=== PATIENT | female | born 1945 | race Caucasian/White ===

== ENCOUNTER 2022-06-06 13:29 | Emergency (ER) | payer MEDICARE, SELFPAY ==
[2022-06-06 14:14] VITALS: BP 152/69; PULSE 70; RESP 16; TEMP 36.5; O2SAT 98
[2022-06-06 14:16] VITALS: BP 152/69; PULSE 70; RESP 16; TEMP 36.5; O2SAT 98
--- NOTE | 2022-06-06 15:33 | ED.URI ---
HPI - URI/Sore Throat General Chief Complaint: Upper Respiratory Infection Stated Complaint: coughing Headache sore throat Time Seen by Provider: 06/06/22 14:40 Source: patient, RN notes reviewed and old records reviewed Mode of arrival: ambulatory Limitations: no limitations History of Present Illness HPI Narrative: 77-YEAR-OLD FEMALE WHO PRESENTS TO [facility] WITH COMPLAINTS ONE WEEK DURATION OF COUGH, Congestion, sore throat, bad headache. Patient has been taking multi symptom Mucinex and Tylenol. Patient reports that cough is hacking and is keeping her up at night.Patient reports that she has had COVID vaccinations and flu shot. MD elicited complaint: cough, sore throat, nasal congestion and other (headache) Onset (ago): day(s) (1) Pain scale (0-10): 7 Treatments prior to arrival: acetaminophen and other (multi symptom Mucinex) Related Data Home Medications Medication Instructions Recorded Confirmed celecoxib 200 mg capsule 200 mg PO DAILY 06/06/22 06/06/22 ezetimibe 10 mg tablet 10 mg PO DAILY 06/06/22 06/06/22 fluoxetine 40 mg capsule 40 mg PO DAILY 06/06/22 06/06/22 lisinopril 20 20 tablet PO DAILY 06/06/22 06/06/22 mg-hydrochlorothiazide 12.5 mg tablet omeprazole 20 mg capsule,delayed 20 mg PO DAILY 06/06/22 06/06/22 release trazodone 150 mg tablet 150 mg PO HS 06/06/22 06/06/22 Allergies Allergy/AdvReac Type Severity Reaction Status Date / Time acetaminophen Allergy Intermediate itching Verified 06/06/22 14:00 hydrocodone Allergy Intermediate itching Verified 06/06/22 14:00 Sulfa (Sulfonamide Allergy Intermediate vomiting Verified 06/06/22 14:00 Antibiotics) Review of Systems Review of Systems: CONSTITUTIONAL: Denies malaise, chills, sweats, or fever. EYES: Denies visual changes, redness, or discharge. ENT: Reports rhinorrhea, congestion, sinus pain,no otalgia,positive for sore throat. CARDIOVASCULAR: Denies chest pain, palpitations, or edema. RESPIRATORY: Reports cough.? Denies dyspnea. GASTROINTESTINAL: Denies abdominal pain, nausea, vomiting, diarrhea SKIN: Denies rash or itching. MUSCULOSKELETAL: Denies myalgia. NEUROLOGIC:Reports headache. All systems reviewed & are unremarkable except as noted in HPI and below PMFSH Past Medical History Medical History (Updated 06/13/22 @ 15:29 by Yumiko Ward NP) Elevated cholesterol GERD (gastroesophageal reflux disease) Hypertension Surgical History Surgical History (Updated 06/13/22 @ 15:32 by Yumiko Ward NP) H/O left knee surgery History of right knee surgery Hx of cholecystectomy Social History Social History (Updated 06/13/22 @ 15:33 by Yumiko Ward NP) Smoking status: Never smoker Alcohol intake: unknown Substance use: never Gender identity (if verbalized by the patient): Female Comments At time of signature, agree with nursing past medical, surgical, social and family history. There is no relevant family history pertinent to the presenting complaint Exam Narrative: GENERAL: Well-appearing, well-nourished, and in no acute distress. HEAD: Normocephalic EYES: PERRLA, conjunctivae clear ENT: Nares clear, turbinates edematous and erythematous, clear discharge. Mucous membranes moist. TM pearly james with dull light reflex bilaterally; no tragal tenderness. Oropharynx erythematous without lesions. Tonsils not enlarged and without exudate, no drooling, no hoarseness, no trismus, uvula midline.post nasal drainage noted NECK: Supple. No lymphadenopathy CHEST: Clear to auscultation, breath sounds equal. No wheezing, rhonchi, rales, or stridor. No respiratory distress, speaks in full sentences.harsh cough [id number]% on room air HEART: Regular rate and rhythm. No murmur heard. SKIN: Warm, dry, no rash. NEURO: Alert and oriented x3. PSYCH: Normal mood and affect Course Course Emergency Course: Patient is aware of diagnosis, understands and agrees to treatment plan.? Anticipato
== END 2022-06-06 15:48 | disposition home or self-care (01) ==
PROVIDERS: Emergency Provider Registered Nurse; PCP Internal Medicine
DX: J06.9 Acute upper respiratory infection, unspecified (principal); Z20.822 Contact with and (suspected) exposure to COVID-19
CPT/HCPCS: 87081; 87426; 87804; 87880; 99203; C9803; G0463

== ENCOUNTER 2023-07-14 15:48 | Emergency (ER) | payer MEDICARE, SELFPAY ==
[2023-07-14 15:54] VITALS: BP 168/72; PULSE 81; RESP 16; TEMP 37.2; O2SAT 96
--- NOTE | 2023-07-14 17:09 | ED.URI ---
HPI - URI/Sore Throat General Chief Complaint: Upper Respiratory Infection Stated Complaint: Cough/Ear Problem/Congestion Time Seen by Provider: 07/14/23 17:09 Source: patient, RN notes reviewed and old records reviewed Mode of arrival: ambulatory Limitations: no limitations History of Present Illness HPI Narrative: 78-year-old female presents to [facility] care with complaints of having cough, sore throat, loss of voice, sinus congestion and drainage since last Monday. Patient reports that she has pressure to her face under both of her eyes.Patient states since yesterday she has had increase in cough and also some ear pain. She denies any body aches, reports intermittent low grade fever, denies any shortness of breath, She states that she has been taking OTC Mucinex DM and using honey for her cough. MD elicited complaint: cough, sore throat, rhinorrhea, nasal congestion, sinus pain and other (ear pain) Onset (ago): day(s) (10) Consistency: progressively worsening Severity: moderate Able to tolerate fluids by mouth: Yes Treatments prior to arrival: other (Mucinex DM and honey for cough) Related Data Home Medications Medication Instructions Recorded Confirmed ezetimibe 10 mg tablet 10 mg PO DAILY 06/06/22 07/14/23 lisinopril 20 20 tablet PO DAILY 06/06/22 07/14/23 mg-hydrochlorothiazide 12.5 mg tablet Allergies Allergy/AdvReac Type Severity Reaction Status Date / Time acetaminophen Allergy Intermediate itching Verified 07/14/23 16:05 hydrocodone Allergy Intermediate itching Verified 07/14/23 16:05 Sulfa (Sulfonamide Allergy Intermediate vomiting Verified 07/14/23 16:05 Antibiotics) Review of Systems Review of Systems: CONSTITUTIONAL:Reports malaise,no chills, sweats, low grade fever. EYES: Denies visual changes, redness, or discharge. ENT: Reports rhinorrhea, congestion, sinus pain, otalgia and sore throat. CARDIOVASCULAR: Denies chest pain, palpitations, or edema. RESPIRATORY: Reports cough.? Denies dyspnea. GASTROINTESTINAL: Denies abdominal pain, nausea, vomiting, diarrhea SKIN: Denies rash or itching. MUSCULOSKELETAL: Denies myalgia. NEUROLOGIC: Denies headache. All systems reviewed & are unremarkable except as noted in HPI and below PMFSH Past Medical History Medical History Elevated cholesterol GERD (gastroesophageal reflux disease) Hypertension Surgical History Surgical History H/O left knee surgery History of right knee surgery Hx of cholecystectomy Social History Social History Smoking status: Never smoker Alcohol intake: unknown Substance use: never Gender identity (if verbalized by the patient): Female Comments At time of signature, agree with nursing past medical, surgical, social and family history. There is no relevant family history pertinent to the presenting complaint Exam Narrative: GENERAL: Well-appearing, well-nourished, and in no acute distress. HEAD: Normocephalic EYES: PERRLA, conjunctivae clear ENT: Nares clear, turbinates edematous and erythematous, clear discharge. Mucous membranes moist. TM pearly james with dull light reflex bilaterally; no tragal tenderness. Oropharynx erythematous without lesions. Tonsils not enlarged and without exudate, no drooling, no hoarseness, no trismus, uvula midline.post nasal drainage NECK: Supple. No lymphadenopathy CHEST: Clear to auscultation, breath sounds equal. No wheezing, rhonchi, rales, or stridor. No respiratory distress, speaks in full sentences.cough,SAO2 96% on room air HEART: Regular rate and rhythm. No murmur heard. SKIN: Warm, dry, no rash. NEURO: Alert and oriented x3. PSYCH: Normal mood and affect Course Course Emergency Course: Patient is aware of diagnosis, understands and agrees to treatment plan.? Rohini
== END 2023-07-14 17:30 | disposition home or self-care (01) ==
PROVIDERS: Emergency Provider Registered Nurse; PCP Internal Medicine
DX: J06.9 Acute upper respiratory infection, unspecified (principal); R05.1 Acute cough; I10 Essential (primary) hypertension; Z79.899 Other long term (current) drug therapy
CPT/HCPCS: 99213; G0463

== ENCOUNTER 2025-02-03 10:06 | Emergency (ER) | payer MEDICARE, SELFPAY ==
[2025-02-03 10:14] VITALS: BP 136/62; PULSE 85; RESP 20; TEMP 36.6; O2SAT 98
--- NOTE | 2025-02-03 10:47 | ED_ITS ---
HPI - URI/Sore Throat General Chief Complaint: Upper Respiratory Infection Stated Complaint: Ear Problem/Sinus Problem Time Seen by Provider: 02/03/25 10:51 Source: patient and RN notes reviewed Mode of arrival: ambulatory Limitations: no limitations History of Present Illness HPI Narrative: 79-year-old female presents with concern for one-week history of ear pain, ear pressure, pressure to her forehead and cheeks, sinus drainage. Reports taking [id number] cold medicine without relief. She reports symptoms started after she went on vacation. MD elicited complaint: nasal congestion Related Data Home Medications ?Medication ?Instructions ?Recorded ?Confirmed ?Last Taken ?Type ezetimibe 10 mg tablet 10 mg PO DAILY 06/06/22 08/27/23 Unknown History lisinopril 20 20 tablet PO DAILY 06/06/22 08/27/23 Unknown History mg-hydrochlorothiazide 12.5 mg tablet celecoxib 200 mg capsule 200 mg PO DAILY 08/25/23 08/27/23 Unknown History fluoxetine 40 mg capsule 40 mg PO DAILY 08/25/23 08/27/23 Unknown History omeprazole 20 mg capsule,delayed 20 mg PO DAILY 08/25/23 08/27/23 Unknown History release trazodone 150 mg tablet 150 mg PO QHS PRN 08/25/23 08/27/23 Unknown History Allergies Allergy/AdvReac Type Severity Reaction Status Date / Time acetaminophen Allergy Intermediate itching Verified 08/25/23 09:39 hydrocodone Allergy Intermediate itching Verified 08/25/23 09:39 Sulfa (Sulfonamide Allergy Intermediate vomiting Verified 08/25/23 09:39 Antibiotics) Review of Systems Review of Systems: CONSTITUTIONAL: Denies malaise, chills, sweats, or fever. EYES: Denies visual changes, redness, or discharge. ENT: Reports rhinorrhea, congestion, sinus pain, otalgia CARDIOVASCULAR: Denies chest pain, palpitations, or edema. RESPIRATORY: Denies cough. Denies dyspnea. GASTROINTESTINAL: Denies abdominal pain, nausea, vomiting, diarrhea SKIN: Denies rash or itching. MUSCULOSKELETAL: Denies myalgia. NEUROLOGIC: Denies headache. All systems reviewed & are unremarkable except as noted in HPI and below PMFSH Past Medical History Medical History Elevated cholesterol GERD (gastroesophageal reflux disease) Hypertension Surgical History Surgical History H/O left knee surgery History of right knee surgery Hx of cholecystectomy Family History Family History Mother Hypertension Depression Heart disease Cerebrovascular accident Sibling Hypertension Social History Social History Smoking status: Never smoker Alcohol intake: never Substance use: never Substance use type: does not use Do You Feel Safe in your Home?: Yes Lack of Transportation: No Lack of Food: Never True Current Housing: I Have Housing Concerned About Future Housing: No Difficulty Paying Gas/Electric Bills: No Difficulty Paying for Meds: No Currently Unemployed: No Education: High School Diploma/GED Difficulty w/ Childcare or Family Care: No Gender identity (if verbalized by the patient): Female Comments At time of signature, agree with nursing past medical, surgical, social and family history. There is no relevant family history pertinent to the presenting complaint Exam Narrative: GENERAL: Well-appearing, well-nourished, and in no acute distress. HEAD: Normocephalic EYES: PERRLA, conjunctivae clear ENT: Nares clear, turbinates edematous and erythematous. Mucous membranes moist. TM pearly james with dull light reflex bilaterally; no tragal tenderness. Oropharynx not erythematous without lesions. Tonsils not enlarged and without exudate, no drooling, no hoarseness, no trismus, uvula midline. NECK: Supple. No lymphadenopathy CHEST: Clear to auscultation, breath sounds equal. No wheezing, rhonchi, rales, or stridor. No respiratory distress, speaks in full sentences. HEART: Regular rate and rhythm. No murmur heard. SKIN: Warm, dry, no rash. NEURO: Alert and oriented x3. PSYCH: Normal mood and affect Course Course Emergency Course: Patient is aware of diagnosis, understands and agrees to treatment plan. Anticipatory guidance given. Patient agrees to follow-up as directed and is aware of reasons to seek care at the emergency department. Portions of this record may have been created with voice recognition software Level of Care: Express Care Visit Vital Signs Vital signs: Vital Signs Temperature 97.8 F 02/03/25 10:14 Pulse Rate 85 02/03/25 10:14 Respiratory Rate 20 02/03/25 10:14 Blood Pressure 136/62 02/03/25 10:14 Pulse Oximetry 98 02/03/25 10:14 Oxygen Delivery Room Air 02/03/25 10:14 Temperature 97.8 F 02/03/25 10:14 Pulse Rate 85 02/03/25 10:14 Respiratory Rate 20 02/03/25 10:14 Blood Pressure 136/62 02/03/25 10:14 Pulse Oximetry 98 02/03/25 10:14 Oxygen Delivery Room Air 02/03/25 10:14 Reviewed. MDM - URI/Sore Throat MDM Narrative Medical decision making narrative: Differential diagnosis considered: Perdomo virus, strep pharyngitis, allergic rhinitis, upper respiratory tract infection, sinusitis, rhinosinusitis, nasopharyngitis. viral pharyngitis, otitis media, otitis externa, pneumonia, bronchitis, viral cough syndrome, viral syndrome, and influenza. Exam findings show no acute concerns or changes; patient is non-toxic appearing and is in no distress. Patient is appropriate for outpatient treatment and follow-up. Lab Data Attestation: I reviewed the patient's lab results. Critical Care Time Critical Care Time Critical Care Time: No Discharge Plan Discharge Clinical Impression: Sinusitis Patient Disposition: Home Condition: Stable Instructions: Antibiotic Form, Sinusitis (ED) Additional Instructions: Take medications as prescribed Nonprescription pain medications, such as acetaminophen (eg, Tylenol) or ibuprofen (eg, Motrin, Advil), are recommended for pain. Flushing the nose and sinuses with a saline solution several times per day has been proven to decrease pain associated with congestion and shorten the duration of symptoms. Nasal steroids (such as Flonase, 2 sprays in each nostril daily) can help to reduce swelling inside the nose, usually within two to three days. These drugs have few side effects and relieve symptoms in most people. Nasal decongestant sprays, including oxymetazoline (Afrin) and phenylephrine ( Timothy-Synephrine), can be used to temporarily treat congestion. However, these sprays should not be used for more than two to three days due to the risk of rebound congestion (when the nose becomes congested constantly unless the medication is used repeatedly), possible addiction, and long-term consequences of frequent use, including persistent nasal dryness and crusting, which is very difficult to treat once it has developed. Medications to thin secretions (such as guaifenesin) may help to clear mucus. Please follow-up with your primary care doctor in the next 1-2 days. If you cannot follow-up with your primary care doctor please go to the ED for any urgent issues. If you have any worsening of symptoms or any other concerns please go to the ED immediately. Patient Language: Greenlandic Prescriptions: New methylprednisolone [Medrol (Elias)] 4 mg tablets,dose pack See Rx Instructions .ROUTE .COMPLEX Qty: 21 0RF Rx Instructions: orally per package directions amoxicillin-pot clavulanate 875-125 mg tablet 1 tablet PO Q12H 10 Days Qty: 20 0RF No Action lisinopril-hydrochlorothiazide 20-12.5 mg tablet 20 tablet PO DAILY ezetimibe 10 mg tablet 10 mg PO DAILY celecoxib 200 mg capsule 200 mg PO DAILY omeprazole 20 mg capsule,delayed release(DR/EC) 20 mg PO DAILY fluoxetine 40 mg capsule 40 mg PO DAILY trazodone 150 mg tablet 150 mg PO QHS PRN methocarbamol 500 mg tablet 500 mg PO TID PRN (Reason: muscle spasm) Qty: 60 1RF Follow-up/Referrals: Yusef,Hal Farrar MD [Primary Care Provider] - Time of Disposition: 10:58
== END 2025-02-03 11:05 | disposition home or self-care (01) ==
PROVIDERS: Emergency Provider Nurse Practitioner; PCP Internal Medicine
DX: J32.9 Chronic sinusitis, unspecified (principal); I10 Essential (primary) hypertension
CPT/HCPCS: 99213; G0463

== ENCOUNTER 2025-04-08 16:07 | Emergency (ER) | payer MEDICARE, SELFPAY ==
--- OUTSIDE RECORDS SUMMARY | 2024-05-22 04:30 | XMS_ITS | Continuity of Care Document ---
Author Organization [facility] Address [address] [place] [address] Phone Care Team Providers Care Handbag Operator Name Role Phone Rafaela KATHRYN, Denice Unavailable Unavailable Allergies, Adverse Reactions, Alerts Substance Reaction Status Criticality HYDROCODONE BITARTRATE Active No In formation acetaminophen Active No Information Sulfa (Sulfonamide Antibiotics) Active No Information Medications Medication Instructions Dosage Effective Dates (start - stop) Status Comments celecoxib 200 mg capsule take 1 capsule by oral route 2 times every day as needed 200 MG - Active lisinopril 20 mg-hydrochlorothiaz viv 12.5 mg tablet take 1 tablet by oral route every day 1.00 tablet - Active ezetimibe 10 mg tablet take 1 tablet by oral route every day 10 MG - Active fluoxetine 40 mg capsule take 1 capsule by oral route every day in the morning 40 MG - Active omeprazole 20 mg delayed release,disintegrat ing tablet take 1 tablet once daily - Active trazodone 150 mg tablet take 1 tablet by oral route 3 times every day 150 MG - Active Procedures Procedure Date Fundus Photography W/ Report Eye Exam, New Patient No Charge Refraction Post-op Follow-up Visit Post-op Follow-up Visit Post-op Follow-up Visit Complex Extracapsular Cat Rem 0 IOLMaster-Professional IOLMaster-Technical No Charge Optomap Fundus Photos 020 No Charge Orbscan No Charge Refraction No Charge GDX Retina Eye Exam, New Patient Advance Directives Directive Yes / No Effective Date File Name No Information Encounters Encounter Description Practice Location Reason(s) For Visit Diagnoses Date Provider Providers Copied on Encounter [facility], [address] [place] [address] [address], [place], [place], [id number], tel:[phone] SEC Jarod LIZ Professional Complete Exam (chief complaint) Other secondary cataract, bilateralPre sence of intraocular lensVitreous degeneration , left eyePseudoexf oliation (PXF) of lens capsuleDry eye syndrome of bilateral lacrimal glands 4 Rafaela OD Denice. [address] [place] [address] [facility], [address], [place], [place], [id number], [place]. tel:[phone] Referring Provider: Pedrito Gomez, [address] [place] [address], [address]. tel:[phone] [facility], [facility] [address], [place], [place], [id number], tel:[phone] SEC Jarod LIZ Professional 1 month s/p COMPLEX PCIOL (chief complaint) Post op visit 0 No Information Referring Provider: Pedrito Gomez, [address] [place] [address], [place], [address]. tel:[phone] [facility], [facility] [address], [place], [place], [id number], tel:[phone] SEC Jarod LIZ Professional 1-2 wk po PCIOL OD (06/10/20) (chief complaint) Post op visit 0 No Information Referring Provider: Pedrito Gomez, [address] [place] [address], [address]. tel:[phone] [facility], [address] [place], [place] [address], [place], [place], [id number], tel:[phone] SEC Jarod LIZ Professional Post-Op (chief complaint) Post op visit 0 5- 0 No Information Referring Provider: Pedrito Gomez, [address] [place] [address], [address]. tel:[phone] [facility], [address] [place] [address] [address], [place], [place], [id number], [place] tel:1 [facility] No Information Nov-0 0 José Miguel Justice. [address] [facility] [place] [facility], [facility] [address], [place], [place], [id number], [place]. tel:[phone] Referring Provider: Pedrito Gomez, [address] [place] [address], [address]. tel:[phone] [facility], [address] [place] [address] [address], [place], [place], [id number], [place] tel:[phone] SEC [place] Professional No Information Nov-0 0 José Miguel Justice. [address] [place] [facility], [facility] [place], [address], [place]. tel:[phone] Referring Provider: Pedrito Gomez, [address] [place] [address], [address]. tel:[phone] [facility], [address] [place] [address] [address], [place], [place], [id number], [place] tel:[phone] SEC Jarod LIZ Professional Complete Exam (chief complaint) Punctate keratitis, bilateralPse udophakia of left eyeOther secondary cataract, left eyePseudoexf oliation (PXF) of lens capsuleAge-r elated nuclear cataract, right eye Sep-2 0 José Miguel Trujillo [address] [facility], [facility] [place], [place], [id number], [place]. tel:[phone] Referring Provider: Pedrito Gomez, [address] [place] [address], [address]. tel:[phone] [facility], [address] [place] [address] [address], [place], [place], [id number], [place] tel:[phone] SEC Joshua Chong No Information 0 José Miguel Justice. [address] [facility], [address], [place], [place], [address], [place]. tel:[phone] Family History Family Member Type Diagnosis Age At Onset Mother Problem degenerative disorder of [place] Payers Payer name Insurance type Covered libertarian ID Jose carvalho(s) [employer] Medicare CI [id number] Social History Type Description Quantity Date Captured Comments Alcohol Use Details No Caffeine Use Details 5 cups per day Tobacco Use Status Current non-smoker Smoking Status Never smoker Non-Smoking Tobacco Use Details : No Details Available : No Details Available Sex Female Chief Complaint And Reason For Visit From encounter dated '05/22/2024 09:30'. Complete Exam (chief complaint). Description: The 79 year old patient presents for evaluation of Complete Exam in the right eye and left eye. Pt states she feels like vision is good OU but states shehas a floater OS x6+ months. Pt states sometimes she is having allergy symptoms with her eyes OU. Reason For Referral Reason For Referral No Information Plan Of Treatment Date Type Action Status Patient Education Learning About YAG Lase r Capsulotomy completed Patient Education Cataract Surgery: What to Expect at H~ completed History Of Present Illness Encounter Date Complaint History Of Prese nt Illness Complete Exam The 79 year old patient presents for evaluation of Complete Exam in the right eye and left eye. Pt states she feels like vision is good OU but states she has a floater OS x6+ months. Pt states sometimes she is having allergy symptoms with her eyes OU. 1 month s/p COMPLEX PCIOL The 75 year old female presents for evaluation of 1 month s/p COMPLEX PCIOL in the right eye (06/10/20). Patient states VA is good with the right eye. 1-2 wk po PCIOL OD (06/10/20) The 75 year old female presents for evaluation of 1-2 wk po PCIOL OD (06/10/20) in the right eye. Pt reports good comfort and vision OD. Pt reports taking Pred, Ket, and Vig QID OD. Post-Op The 75 year old female presents for a 1 day post op CE OD. Patient is using Pred, Vigamox and Ketorolac qid OD. Patient denies any pain or discomfort. Complete Exam The 75 year old female presents for evaluation of Complete Exam in the right eye and left eye. Hx of PCIOL OS and Cataract OD. Patient states over the last year her right her has decreased. Patient states she avoids driving at night due to glare more with the right eye than left. Patient has difficulty seeing roads signs at a distance with the right eye x 6 months. Patient has trouble reading labels at the grocery store with the right eye x year. 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
--- NOTE | ~2025-04-08 | XR_ITS ---
EXAMINATION: XR chest 2V 04/08/2025 16:53 INDICATION: Cough and shortness of breath PROCEDURE: 2 view chest COMPARISON: No prior studies for comparison. FINDINGS: The lungs are clear. The cardiomediastinal silhouette is within normal limits. There are no pleural effusions. There is no pneumothorax suspected. IMPRESSION: 1: NO ACUTE CARDIOPULMONARY DISEASE. Reviewed, dictated and finalized at location O.
--- OUTSIDE RECORDS SUMMARY | 2025-04-08 16:11 | XMS_ITS | Clinical Summary ---
Author Organization [email or web address] Address [address] Lord: Epic Prelude ADT SUZANNE GRANADOQUYNH [address] Care Team Providers Care Bingo Caller Name Role Phone Unavailable Primary Care Provider Unavailabl e Social History Tobacco Use Types Packs/Day Years Used Date Smoking Tobacco: Never Assessed Comments Unknown Sex and Gender Information Value Date Recorded Sex Assigned at Not on file Legal Sex Female 4:58 AM MATCH UP PERSON Gender Identity Not on file Sexual Orientation Not on file Plan of Treatment Health Maintenance Due Date Last Done Comments DTAP/TDAP/TD VACCINES (1 - Tdap) 1964 PNEUMOCOCCAL VACCINE 50+ YEARS (1 of 1 - PCV) 03/22/19 94 ZOSTER VACCINE (1 of 2) 1994 OSTEOPOROSIS SCREENING 2009 RSV VACCINE (60+ or ) (1 - 1-dose 75+ series) 2019 INFLUENZA VACCINE (#1) 2025
--- OUTSIDE RECORDS SUMMARY | 2025-04-08 16:11 | XMS_ITS | Encounter Summary ---
Author Organization [facility] Address [address] 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
--- OUTSIDE RECORDS SUMMARY | 2025-04-08 16:11 | XMS_ITS | Clinical Summary ---
Author Organization [facility] Address [address] [place] [address] Care Team Providers Care Nondestructive Tester Name Role Phone Unavailable Primary Care Provider Unavailabl e Source Comments [facility],non-owned Affiliates and Associated Physician Practices is amultiple site organization consisting of ambulatory clinics and hospital sitesin [place], [place], [place] and [place]. This disclosure is being madepursuant to the Care Everywhere program and may not contain all information available regarding this patient. Last updated 18.[facility] Immunizations Immunization Administration Dates Next Due INFLUENZA VACCINE, HIGH-DOSE , QUADR. (FLUZONE HIGH-DOSE QUADRIVALENT; 65Y+), 0.7 ML ([id number]) 05/22/2019 Social History Tobacco Use Types Packs/Day Years Used Date Smoking Tobacco: Never Assessed Comments Unknown Sex and Gender Information Value Date Recorded Sex Assigned at Not on file Legal Sex Female 4:31 PM CDT Gender Identity Not on file Sexual Orientation Not on file Plan of Treatment Health Maintenance Due Date Last Done Comments BONE DENSITY TESTING 1945 DTAP/TDAP/TD VACCINES (1 - Tdap) 1963 PNEUMOCOCCAL VACCINE 50+ (1 of 1 - PCV) 1994 ZOSTER VACCINE (1 of 2) 1994 Respiratory Syncytial Virus (RSV) Vaccine Pt: or over 60 yrs (1 - 1-dose 75+ series) 2019 COVID-19 VACCINE ( - 2023-2 5 season) 2024 DEPRESSION SCREENING 08/07/2024 INFLUENZA VACCINE (#1) 2025 05/22/2019 HEPATITIS B VACCINE Aged Out No longe r eligible based on patient's age to complete this topic HIB VACCINE Aged Out No longer eligi ble based on patient's age to complete this topic HPV VACCINE Aged Out No longer eligi ble based on patient's age to complete this topic MENINGOCOCCAL (Group B) VACC INE SHARED DECISION-MAKING Aged Out No longer eligibl e based on patient's age to complete this topic MENINGOCOCCAL GROUPS A/C/Y/W VACCINE Aged Out No longer eligible b ased on patient's age to complete this topic Insurance
--- OUTSIDE RECORDS SUMMARY | 2025-04-08 16:11 | XMS_ITS | Clinical Summary ---
Author Organization [facility] Address [address] [place] [phone] Phone Care Team Providers Care Fish Conservationist Name Role Phone Unavailable Primary Care Provider Unavailabl e Allergies Active Allergy Reactions Criticality Noted Date Comments Codeine Itching Low 08/14/2020 , Hydrocodone Itching 08/14/2020 Sulfa Antibiotics Vomiting Low 08/14/2020 Reaction: Gastrointestinal Intolerance, Sulfamethoxazole-Trimeth oprim Vomiting 11/04/2017 Medications ezetimibe (ZETIA) 10 MG Tablet Take 10 mg by mouth daily. 07/25/2016 Active lisinopril-hydro CHLOROthiazide (PRINZIDE, ZESTORETIC) 20-12.5 MG Tablet Take 1 Tablet by mouth daily. Active omeprazole (PriLOSEC) 20 MG CAPSULE DELAYED RELEASE 20 mg. 01/16/2009 Active traZODone (DESYREL) 150 MG Tablet nightly. 08/04/2020 Active Topiramate 50 MG Tablet 08/12/2020 Active FLUoxetine (PROZAC) 40 MG Capsule 40 mg. 06/11/2007 Active celecoxib (CeleBREX) 200 MG Capsule 200 mg daily. 06/18/2020 Active Active Problems Problem Noted Date Diagnosed Date Chronic GERD 05/16/2017 Overview (08/14/2020): Last Assessment & Plan: Stable. Continue current dose of Prilosec 20 mg q.day for control condition follow-up in [address] Sotelo regarding condition High blood pressure 12/21/2013 Overview (08/14/2020): BENIGN HYPERTENSION Last Assessment & Plan: Stable. Continue current antihypertensives, dash diet, increasing exercise as tolerated along baby aspirin a day considering it does not seem to worsen her GERD control. Follow up with Dr. sotelo for labs in office visit in 2 months is advised Multiple-type hyperlipidemia 12/21/2013 Overview (08/14/2020): MIXED HYPERLIPIDEMIA Last Assessment & Plan: Continue on current dose of Zetia, aspirin therapy, along with heart healthy diet increasing exercise as tolerated. Follow up with Dr. sotelo for repeat labs in office visit in 2 months as scheduled Family History Medical History Relation Name Comments Heart Attack Father Heart Attack Mother Arthritis Sister Diabetes Sister Hypertension Son 1 No Known Problems Son 2 Relation Name Status Comments Father Mother Sister Alive Son 1 Alive Son 2 Alive Social History Tobacco Use Types Packs/Day Years Used Date Smoking Tobacco: Never Smokeless Tobacco: Never Alcohol Use Standard Drinks/Week Comments Never 0 (1 standard drink = 0.6 oz pur e alcohol) AUDIT-C Answer Date Recorded Q1: How often do you have a drink containing alc ohol? Never 08/17/2020 Average Number of Drinks Not on file 021 Frequency of Binge Drinking Not on file 08/07 Comments No Sex and Gender Information Value Date Recorded Sex Assigned at Not on file Legal Sex Female 11:10 PM CDT Gender Identity Not on file Sexual Orientation Not on file Last Filed Vital Signs Vital Sign Reading Time Taken Comments Blood Pressure 115/73 08/17/2020 11:10 AM THEATRICAL RIGGER Pulse 57 08/17/2020 11:10 AM THEATRICAL RIGGER Temperature 36.3 C (97.3 F) 08/17/2020 11:10 AM THEATRICAL RIGGER Respiratory Rate 18 08/17/2020 11:10 AM THEATRICAL RIGGER Oxygen Saturation 96% 08/17/2020 11:10 AM THEATRICAL RIGGER Inhaled Oxygen Concentration - - Weight 65.8 kg (145 lb) 09/26/2022 9:00 AM THEATRICAL RIGGER Height 160 cm (5' 3) 09/26/2022 9:00 AM THEATRICAL RIGGER Body Mass Index 25.69 09/26/2022 9:00 AM THEATRICAL RIGGER Plan of Treatment Health Maintenance Due Date Last Done Comments Hepatitis C Virus (HCV) Screening 1945 TdaP Immunization 1945 Pneumococcal Immunization (50+ years) (1 of 1 - PCV) 1994 Zoster Immunization (1 of 2) 1994 Respiratory Syncytial Virus (RSV) Immunization (Adult) (1 - 1-dose 75+ series) 2019 Influenza Immunization (#1) 2025 05/22/2019 SARS-COV-2 Immunization ( season) 2025 11/11/2021, 06/28/2021, 12/22/2020, Additional history exists Hepatitis B Immunization Aged Out No longer eligible based on patient's age to complete this topic Human Papillomavirus (HPV) Immunization Aged Out No longer eligible based on patient's age to complete this topic Meningococcal Immunization (ACWY) Aged Out No longer eligible based on patient's age to complete this topic Rotavirus Immunization Aged Out No lo nger eligible based on patient's age to complete this topic Insurance MEDICARE C [employer]
--- OUTSIDE RECORDS SUMMARY | 2025-04-08 16:11 | XMS_ITS | Clinical Summary ---
Author Organization [facility] Address [address] [place] [id number] Care Team Providers Care Field Captain Name Role Phone Pedrito Sotelo MD Primary Care Provider + Allergies Active Allergy Reactions Criticality Noted Date Comments Codeine Itching Low , Sulfa (Sulfonamide Antibiotics) Vomiting Low Reaction: Gastrointestinal Intolerance, Medications ezetimibe (ZETIA) 10 mg tablet take 1 tablet by oral route every day 90 3 07/25/2016 Active FLUoxetine (PROzac) 40 mg capsule TAKE ONE CAPSULE BY MOUTH EVERY MORNING 90 3 06/11/2007 Active lisinopril-hydr oCHLOROthiazide (ZESTORETIC) 20-12.5 mg per tabletIndicatio ns:hypertension Take 1 tablet by mouth daily Active celecoxib (CeleBREX) 200 mg capsule Take 1 capsule (200 mg total) by mouth daily 06/18/2020 Active traZODone (DESYREL) 150 mg tablet Take 1 tablet (150 mg total) by mouth nightly 10/05/2024 Active omeprazole (PriLOSEC) 20 mg capsule Take 1 capsule (20 mg total) by mouth daily Active Active Problems Problem Noted Date Diagnosed Date Delirium 10/11/2024 Arthralgia 08/07/2023 Acute viral syndrome 08/07/2023 Acute cholecystitis 06/16/2020 Choledocholithiasis with acute cholecystitis 05/2020 Epigastric pain 06/14/2020 Chest pain 06/13/2020 Elevated LFTs 06/13/2020 Closed head injury 09/04/2019 Contusion of occipital region of scalp 0 Acute maxillary sinusitis 09/04/2019 BMI 26.0-26.9,adult 07/04/2017 Assessment & Plan (07/04/2017 10:13 AM GROUND PRODUCTS DIRECTOR): Recommended patient to continue to increase heart healthy diet with adequate fruits, vegetables, and plenty of water along with mild-moderate daily exercise as tolerated. Moderate episode of recurrent major depressive d isorder 07/04/2017 Assessment & Plan (07/04/2017 3:25 PM GROUND PRODUCTS DIRECTOR): Stable. Continue on current dose of fluoxetine as previously prescribed as working well for management the patient's depression. Follow up with Dr. sotelo in 6 months to discuss any desire to wean off medication or certainly sooner there is any concern regarding medication and/or depression Aftercare following left knee joint replacement surgery 06/20/2017 Pre-op evaluation 05/16/2017 Assessment & Plan (05/16/2017 9:50 AM CDT): Patient is medically stable. Patient reports risks of surgery have been reviewed with her in detail by her orthopedist. She accepts these risks and wishes to proceed in this fashion. She understands that no procedure is risk free. Preoperative testing includes bedside EKG, CBC, CMP, urinalysis with reflex to microscopy and culture. Final medical clearance to be determined following review of diagnostic workup. Patient has strict instructions to contact the office with any change in her medical condition prior to her upcoming procedure. Chronic GERD 05/16/2017 Assessment & Plan (07/04/2017 10:14 AM GROUND PRODUCTS DIRECTOR): Stable. Continue current dose of Prilosec 20 mg q.day for control condition follow-up in [address] Sotelo regarding condition Assessment & Plan (05/16/2017 9:36 AM CDT): Well controlled with current medication, omeprazole 20 mg daily. Needs flu shot 05/16/2017 Assessment & Plan (05/16/2017 9:36 AM CDT): Annual influenza vaccine provided today. Chronic constipation 05/16/2017 Assessment & Plan (05/16/2017 9:35 AM CDT): Constipation is well controlled with p.r.n. Bisacodyl. Healthcare maintenance 02/27/2017 Medication management 02/27/2017 Migraine with aura 02/18/2014 [facility] (11/11/2016[facility] Essential hypertension 12/21/2013 Overview (11/10/2016): BENIGN HYPERTENSION Assessment & Plan (07/04/2017 10:15 AM GROUND PRODUCTS DIRECTOR): Stable. Continue current antihypertensives, dash diet, increasing exercise as tolerated along baby aspirin a day considering it does not seem to worsen her GERD control. Follow up with Dr. sotelo for labs in office visit in 2 months is advised Assessment & Plan (05/16/2017 9:34 AM CDT): Hypertension is improving with treatment. Continue current treatment regimen. Continue current medications. Blood pressure will be reassessed at the next regular appointment. Generalized osteoarthritis 12/21/2013 Overview (11/10/2016): GENERAL OSTEOARTHROSIS Hematuria 12/21/2013 Overview (11/10/2016): HEMATURIA Multiple-type hyperlipidemia 12/21/2013 Overview (11/11/2016): MIXED HYPERLIPIDEMIA Assessment & Plan (07/04/2017 10:15 AM GROUND PRODUCTS DIRECTOR): Continue on current dose of Zetia, aspirin therapy, along with heart healthy diet increasing exercise as tolerated. Follow up with Dr. sotelo for repeat labs in office visit in 2 months as scheduled Assessment & Plan (05/16/2017 9:36 AM CDT): Continue Zetia as previously prescribed. Routine lab work/ lipid panel per primary care provider. Resolved Problems Problem Noted Date Diagnosed Date Resolved Date Primary osteoarthritis of left knee 01/19/2017 07/20/2017 Assessment & Plan (05/16/2017 9:37 AM CDT): Orthopedist has thoroughly evaluated patient and has recommended total knee replacement. Patient requests to proceed as recommended. Depression 12/21/2013 07/04/2017 Overview (11/10/2016): DEPRESSIVE DISORDER NEC Assessment & Plan (07/04/2017 3:24 PM GROUND PRODUCTS DIRECTOR): Stable. Continue on current dose of fluoxetine as previously prescribed as working well for management the patient's depression. Follow up with Dr. sotelo in 6 months to discuss any desire to wean off medication or certainly sooner there is any concern regarding medication and/or depression Encounters Date Type Department Care Team Description 01/30/2025 9:02 AM CDT - 01/30/2025 11:59 PM CDT Hospital Encounter [address] [address] Cervicalgia Discharge Disposition: Discharge to home or self care from Last 3 Months Immunizations Immunization Administration Dates Next Due Influenza, Quadrivalent, Hig h Dose, Preservative Free, Intrr 05/22/2019 Influenza, Split 04/27/2010 Influenza, Trivalent, High D ose, Split, Preservative Free, Intramuscular 05/16/2017,07/18/2016,06/29/2015,06/10,05/14/2013 Influenza, Unspecified 05/08/2020 Pneumococcal Conjugate PCV 13 06/10/2014 Pneumococcal Polysaccharide PPV23 04/02/2012 Tdap 12/30/2008 ZOSTER LIVE 04/02/2012 Surgical History Surgery Date Site/Laterality Comments OTHER SURGICAL HISTORY righ thumb surgery KNEE ARTHROPLASTY 08/07/2012 - 08/06/2013 Right Knee replacement KNEE ARTHROPLASTY 08/07/2016 - 08/06/2017 Left knee replacement BUNIONECTOMY Medical History Medical History Date Comments Hx Other Medical HC Hypertension Hypertension Hx Other Medical ganglion (L) an kle Hx Other Medical 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 (-) Cysto Hx Other Medical HNP C-Spine Depression Depression Hx Other Medical Headache, migra ine Hx Other Medical 1999 B bunionectomy Hx Other Medical 2008 R knee arthrosc opy Hx Other Medical 11/09/2012 TKR; Laterality : right Hx Other Medical right thumb ephraim naida GERD (gastroesophageal reflux disease) Arthritis Family History Medical History Relation Name Comments Depression Father Depression; Heart disease Father Heart disease; Heart disease Mother Heart disease; Hypertension Mother Hypertension; Stroke Mother Stroke; Heart disease Other 1 Family history of Heart disease; Hypertension Other 2 Family history of Hypertension; Diabetes type II Sister Tomasa Diabetes -T ype 2; Hypertension Sister Tomasa Stroke Sister Tomasa Relation Name Status Comments Father Mother Other 1 Other 2 Sister Tomasa Alive Social History Tobacco Use Types Packs/Day Years Used Date Smoking Tobacco: Never Smokeless Tobacco: Never Alcohol Use Standard Drinks/Week Comments No 0 (1 standard drink = 0.6 oz pur e alcohol) [facility] Utilities Answer Date Recorded In the past 12 months has th e electric, gas, oil, or water [employer] threatened to shut off services in your home? No 10/14/2024 Social Connection and Isolation Panel Answer Date Recorded In a typical week, how many times do you talk on the phone with family, friends, or neighbors? More than three times a week 10/14/2024 How often do you get togethe r with friends or relatives? More than three times a week 10/14/2024 How often do you attend chur ch or mandaen services? Never 10/14/2024 Do you belong to any clubs o r organizations such as presybeterian groups, unions, fraternal or athletic groups, or school groups? No 10/14/2024 How often do you attend meet ings of the clubs or organizations you belong to? Never 10/14/2024 Are you , , di vorced, , never , or living with a partner? 10/14/2024 AUDIT-C Answer Date Recorded Q1: How often do you have a drink containing alc ohol? Never 10/11/2024 Average Number of Drinks Not on file 025 Frequency of Binge Drinking Not on file 02/2025 Overall Financial Resource Strain (CARDIA) Answe r Date Recorded How hard is it for you to pa y for the very basics like food, housing, medical care, and heating? Not very hard 10/14/2024 Hunger Vital Sign Answer Date Recorded Within the past 12 months, y ou worried that your food would run out before you got the money to buy more. Never true 10/15/19 25 Within the past 12 months, t he food you bought just didn't last and you didn't have money to get more. Never true 10/14/2024 PRAPARE - Transportation Answer Date Re corded In the past 12 months, has l ack of transportation kept you from medical appointments or from getting medications? No 10/05 In the past 12 months, has l ack of transportation kept you from meetings, work, or from getting things needed for daily living? No 10/14/2024 Housing Stability Vital Sign Answer Bruno e Recorded In the last 12 months, was t here a time when you were not able to pay the mortgage or rent on time? No 10/14/2024 In the past 12 months, how m any times have you moved where you were living? 0 10/14/2024 At any time in the past 12 m [facility], were you homeless or living in a [place] facility (including now)? No 10/14/2024 Personal Safety Answer Date Recorded Have you ever been in or are you currently in a harmful physical or emotional relationship or is someone making you feel afraid or unsafe? 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 Not on file Not on file Not on file Obstetrics History Para Term AB IAB SAB Ectopic Multiple Livin g Live Births 2 2 2 Date Outcome GA Total Labor Labor/2nd/3rd Weight Sex Type Anes PTL Vianney A1 A5 Name Clin Term Term Last Filed Vital Signs Vital Sign Reading Time Taken Comments Blood Pressure 108/88 10/14/2024 7:55 AM CDT Pulse 80 10/14/2024 7:55 AM CDT Temperature 35.6 C (96 F) 10/14/2024 7:55 AM CDT Respiratory Rate 18 10/14/2024 7:55 AM CDT Oxygen Saturation 93% 10/14/2024 7:55 AM CDT Inhaled Oxygen Concentration - - Weight 67.9 kg (149 lb 11.1 oz) 10/11/2024 3:02 PM GROUND PRODUCTS DIRECTOR Height 157.5 cm (5' 2) 10/11/2024 3:0 2 PM GROUND PRODUCTS DIRECTOR Body Mass Index 27.38 10/11/2024 3:02 PM GROUND PRODUCTS DIRECTOR Plan of Treatment Health Maintenance Due Date Last Done Comments Hepatitis B Screening 1963 Well Visit 65+ 2009 Zoster Vaccine (2 of 3) 05/28/2012 04/02/2012 Osteoporosis Screening-Bone Density Scan 02/19/2016 02/18/2014 Depression Screening 07/04/2018 07/04/2017, 05/16/2017, 02/27/2017 DTaP/Tdap/Td Vaccine (2 - Td or Tdap) 12/30/2018 12/30/2008 Influenza Vaccine (#1) 2025 , 05/22/2019, 05/16/2017, Additional history exists Fall Risk Assessment 10/14/2025 10/14/2024, 07/04/20 17 Pneumococcal vaccine 65+ Completed 06/10/2014, 03/08 Procedures Procedure Name Priority Date/Time Associated Diagnosis Comments MRI CERVICAL SPINE WO CONTRAST Schedule Routine, Read Routine (OP Routine) 01/30/2025 9:31 AM CDT Cervicalgia HM DEXA SCAN Routine 02/18/2014 from Last 3 Months or Most Recently Relevant to Health Maintenance Results * MRI Cervical Spine WO Contrast (01/30/2025 9:31 AM CDT) Anatomical Region Laterality Modality Spine N/A Magnetic Resonan ce 01/30/2025 12:1 8 PM CDT Narrative 01/30/2025 12:27 PM CDT EXAM DESCRIPTION: MRI CERVICAL SPINE WO CONTRAST REASON FOR STUDY: CERVICALGIA Started having aching pain and numbness/tingling in arms 7 years ago. No injury. TECHNIQUE: Sagittal and Axial imaging includes T1, T2, STIR and gradient echo sequences. COMPARISON: Cervical spine MRI dated 08/18/2023 05/29/2023. Cervical spine radiographs dated 12/25/2023. FINDINGS: Multiple of the sequences degraded by motion and pulsation related artifact ALIGNMENT: Grade 1 anterolisthesis of C3 on C4, C4 on C5, C6 on C7 and T1 on T2 through T4 on T5. Grade 1 retrolisthesis of C5 on C6. VERTEBRAE: Multilevel endplate degenerative changes with marginal spur formation as seen previously. The mild STIR hyperintense signal along the superior endplate of C5, C6 and C7 is nonspecific and presumed to be degenerative in nature. If trauma is suspected then a CT has higher sensitivity for spinal fractures and can be obtained as clinically indicated. Osseous fusion across the left C2-C3, C4-C5 and portions of the C5-C6 facet joint. Osseous fusion across the right C2-C3 and C4-C5 facet joints. Additional degenerative changes of the C1-C2 level. DISCS: Diffuse disc desiccation and height loss. Partial osseous fusion across the C5-C6 disc space posteriorly. HARDWARE: None in the spine. CORD: Suboptimal assessment on this motion and pulsation degraded study. INDIVIDUAL LEVELS: C2-C3: No significant disc bulge or spinal canal stenosis. Uncovertebral spurring and facet arthropathy with mild left and no significant right neural foraminal narrowing. C3-C4: Posterior disc osteophyte complex and thickened ligamentum flavum. Mild spinal canal stenosis. Uncovertebral spurring and facet arthropathy with severe left moderate to severe right neural foraminal narrowing. C4-C5: Anterolisthesis of C4 on C5 with unroofing of the disc. No significant spinal canal stenosis. Uncovertebral spurring and facet arthropathy with rprj-oq-txonprns neural foraminal narrowing. C5-C6: Retrolisthesis of C5 on C6 with unroofing of the disc. Thickened ligamentum flavum. Xidr-pc-oitfxiwk spinal canal stenosis. Uncovertebral spurring and facet arthropathy with moderate to severe left and moderate right neural foraminal narrowing. C6-C7: Posterior disc osteophyte complex and thickened ligamentum flavum. Pcdf-wp-bwcfnqws spinal canal stenosis. Uncovertebral spurring and facet arthropathy with moderate to severe neural foraminal narrowing. C7-T1: No significant disc bulge, spinal canal or neural foraminal narrowing. There is facet arthropathy. UPPER THORACIC: Incompletely imaged. Multilevel degenerative changes without high-grade spinal canal stenosis. IMPRESSION: 1. The cervical disc degeneration ranging up to moderate to severe with thickened ligamentum flavum, uncovertebral spurring and facet arthropathy as seen on the previous cervical spine MRI dated 08/18/2023. The spinal canal narrowing is most noticeable at C5-C6 and C6-C7. 2. Varying degrees of bilateral neural foraminal stenosis ranging up to moderate to severe and additional findings as above. THIS IS AN ELECTRONICALLY VERIFIED FINAL REPORT 01/30/2025 12:27 PM - Electronically signed by Doug Palomo D.O. AP: AP Report ID: [id number] Reading Location: [id number] Procedure Note Doug Palomo, DO - 01/30/2025 EXAM DESCRIPTION: MRI CERVICAL SPINE WO CONTRAST REASON FOR STUDY: CERVICALGIA Started having aching pain and numbness/tingling in arms 7 years ago. No injury. TECHNIQUE: Sagittal and Axial imaging includes T1, T2, STIR and gradientecho sequences. COMPARISON: Cervical spine MRI dated 08/18/2023 05/29/2023. Cervicalspine radiographs dated 12/25/2023. FINDINGS: Multiple of the sequences degraded by motion and pulsation relatedartifact ALIGNMENT: Grade 1 anterolisthesis of C3 on C4, C4 on C5, C6 on C7 andT1 on T2 through T4 on T5. Grade 1 retrolisthesis of C5 on C6. VERTEBRAE: Multilevel endplate degenerative changes with marginal spur formation as seen previously. The mild STIR hyperintense signal along the superior endplate of C5, C6 and C7 is nonspecific and presumed to be degenerative in nature. If trauma is suspected then a CT has higher sensitivity for spinal fractures and can be obtained as clinicallyindicated. Osseous fusion across the left C2-C3, C4-C5 and portions of the C5-G2wqwlc joint. Osseous fusion across the right C2-C3 and C4-C5 facet joints. Additional degenerative changes of the C1-C2 level. DISCS: Diffuse disc desiccation and height loss. Partial osseous fusion across the C5-C6 disc space posteriorly. HARDWARE: None in the spine. CORD: Suboptimal assessment on this motion and pulsation degraded study. INDIVIDUAL LEVELS: C2-C3: No significant disc bulge or spinal canal stenosis. Uncovertebral spurring and facet arthropathy with mild left and no significant rightneural foraminal narrowing. C3-C4: Posterior disc osteophyte complex and thickened ligamentum flavum. Mild spinal canal stenosis. Uncovertebral spurring and facet arthropathywith severe left moderate to severe right neural foraminal narrowing. C4-C5: Anterolisthesis of C4 on C5 with unroofing of the disc. Nosignificant spinal canal stenosis. Uncovertebral spurring and facet arthropathy with xppn-lq-iwvvhljf neural foraminal narrowing. C5-C6: Retrolisthesis of C5 on C6 with unroofing of the disc. Thickened ligamentum flavum. Wsjq-tz-xhsqvtcn spinal canal stenosis. Uncovertebral spurring and facet arthropathy with moderate to severe left and moderateright neural foraminal narrowing. C6-C7: Posterior disc osteophyte complex and thickened ligamentum flavum. Iehi-rt-jowykeum spinal canal stenosis. Uncovertebral spurring and facet arthropathy with moderate to severe neural foraminal narrowing. C7-T1: No significant disc bulge, spinal canal or neural foraminalnarrowing. There is facet arthropathy. UPPER THORACIC: Incompletely imaged. Multilevel degenerative changes without high-grade spinal canal stenosis. IMPRESSION: 1. The cervical disc degeneration ranging up to moderate to severe with thickened ligamentum flavum, uncovertebral spurring and facet arthropathyas seen on the previous cervical spine MRI dated 08/18/2023. The spinalcanal narrowing is most noticeable at C5-C6 and C6-C7. 2. Varying degrees of bilateral neural foraminal stenosis ranging up to moderate to severe and additional findings as above. THIS IS AN ELECTRONICALLY VERIFIED FINAL REPORT 01/30/2025 12:27 PM - Electronically signed by Doug Palomo D.O. AP: TALIA Report ID: [id number] Reading Location: [place] [address] us Not In File Miscellaneous IMG MRI PROCEDURES Fin al Result * DEXA SCAN (02/18/2014) DEXA Scan Abnormal Comment:Osteopenia us Historical Provider HEALTH MAINTENANCE Final Result from Last 3 Months or Most Recently Relevant to Health Maintenance Insurance [employer] MEDICARE HMO HU[employer] MEDICARE HMO Advance Directives For more information, please contact: [phone] * Full Code (Latest Code Status on File) Date Activated Date Inactivated Comments 06/13/2020 6:37 PM 06/16/2020 9:43 PM Care Teams Field Captain Relationship Specialty Start Date End Date Pedrito Sotelo MD [address] [address] PCP - General 11/04/16
--- OUTSIDE RECORDS SUMMARY | 2025-04-08 16:11 | XMS_ITS | Encounter Summary ---
Author Organization [facility] Address [address] [address] Care Team Providers Care Meat Team Member Name Role Phone Pedrito Holbrook MD Primary Care Provider + Pedrito Holbrook MD Primary Care Provider + Encounter Details Date Type Department Care Team (Late st Contact Info) Description 11/03/2016 Orders Only [facility] ProviderNash MD [address] [place] [id number] Social History Tobacco Use Types Packs/Day Years Used Date Smoking Tobacco: Never Alcohol Use Standard Drinks/Week Comments No 0 (1 standard drink = 0.6 oz pur e alcohol) Comments Unknown Sex and Gender Information Value Date Recorded Sex Assigned at Not on file Legal Sex Female 11:53 PM CUSTOMER CARE ASSOCIATE Gender Identity Not on file Sexual Orientation Not on file documented as of this encounter Plan of Treatment Not on file documented as of this encounter Procedures Procedure Name Priority Date/Time Associated Diagnosis Comments CARDIOLOGY REPORT 11/03/2016 documented in this encounter Results * CARDIOLOGY REPORT (11/03/2016) Anatomical Region Laterality Modality Other Narrative 11/03/2016 Ordered by an unspecified provider. Historical Provider [facility] RODRIGUEZ Final Result documented in this encounter Visit Diagnoses Not on filedocumented in this encounter Additional Health Concerns Infection Onset Date Last Indicated Resolved Time COVID: Suspected 08/07/2023 08/07/2023 08/07/2023 7:51 PM CUSTOMER CARE ASSOCIATE COVID: Suspected 10/12/2024 10/12/2024 10/12/2024 10:01 AM CUSTOMER CARE ASSOCIATE Influenza, adult 10/12/2024 10/12/2024 10/19/2024 3:05 AM CDT documented as of this encounter Care Teams Meat Team Member Relationship Specialty Start Date End Date Pedrito Holbrook MD [address] [facility] [place] [address] PCP - General 11/04/16 Pedrito Holbrook MD [address] [facility] [place] [id number] PCP - General 10/17/16 11/03/16 documented as of this encounter
[2025-04-08 16:14] VITALS: BP 144/67; PULSE 78; RESP 20; TEMP 36.4; O2SAT 95
--- NOTE | 2025-04-08 16:37 | ED.URI ---
HPI - URI/Sore Throat General Chief Complaint: Upper Respiratory Infection Stated Complaint: cold flu symptoms Time Seen by Provider: 04/08/25 16:20 Source: patient Mode of arrival: ambulatory Limitations: no limitations History of Present Illness HPI Narrative: Marycarmen is an 80-year-old female patient presenting to the clinic today with complaints of runny nose, nonproductive cough, shortness of breath, chest congestion, and nasal congestion times 8 days. She denies any fevers, chills, body aches. States she has or short of breath on exertion. States when she is blowing her nose she is blowing out green nasal discharge. She is unable to cough anything up. No history of COPD or asthma. She has taken to at home COVID test and they were negative. Related Data Home Medications ?Medication ?Instructions ?Recorded ?Confirmed ?Last Taken ?Type ezetimibe 10 mg tablet 10 mg PO DAILY 06/06/22 08/27/23 Unknown History lisinopril 20 20 tablet PO DAILY 06/06/22 08/27/23 Unknown History mg-hydrochlorothiazide 12.5 mg tablet celecoxib 200 mg capsule 200 mg PO DAILY 08/25/23 08/27/23 Unknown History fluoxetine 40 mg capsule 40 mg PO DAILY 08/25/23 08/27/23 Unknown History omeprazole 20 mg capsule,delayed 20 mg PO DAILY 08/25/23 08/27/23 Unknown History release trazodone 150 mg tablet 150 mg PO QHS PRN 08/25/23 08/27/23 Unknown History Allergies Allergy/AdvReac Type Severity Reaction Status Date / Time acetaminophen Allergy Intermediate itching Verified 04/08/25 16:28 codeine Allergy Intermediate Rash Verified 04/08/25 16:28 hydrocodone Allergy Intermediate itching Verified 04/08/25 16:28 Sulfa (Sulfonamide Allergy Intermediate vomiting Verified 04/08/25 16:28 Antibiotics) Review of Systems Review of Systems: Pertinent positives per HPI. Patient denies any fever, chills, rash, headache, visual changes, dizziness, chest pain, palpitations, nausea, vomiting, diarrhea, constipation, abdominal pain, or any urinary issues. PMFSH Past Medical History Medical History Elevated cholesterol GERD (gastroesophageal reflux disease) Hypertension Surgical History Surgical History History of right knee surgery H/O left knee surgery Hx of cholecystectomy Family History Family History Mother Hypertension Depression Heart disease Cerebrovascular accident Sibling Hypertension Social History Social History Smoking status: Never smoker Alcohol intake: never Substance use: never Substance use type: does not use Do You Feel Safe in your Home?: Yes Lack of Transportation: No Lack of Food: Never True Current Housing: I Have Housing Concerned About Future Housing: No Difficulty Paying Gas/Electric Bills: No Difficulty Paying for Meds: No Currently Unemployed: No Education: High School Diploma/GED Difficulty w/ Childcare or Family Care: No Gender identity (if verbalized by the patient): Female Comments At the time of my signature, I reviewed and agree with the nursing past medical, surgical, social, and family history. There is no relevant family history pertinent to the patient complaint. Exam Narrative: General: Well-developed, well nourished, in no apparent distress Head: Normocephalic, atraumatic Eyes: Pupils equally round and reactive to light bilaterally, EOM intact, sclera and conjunctive clear, no discharge, lids normal Ears: TMs intact and congested, ear canals clear, no drainage, grossly hearing normal. Nose: Nares patent, green nasal discharge, moderate inflammation, maxillary sinus tenderness. Mouth: Oral pharynx red without lesions or masses, good dentition, MMM. Postnasal drip Neck: Supple, trachea midline, no enlargement of anterior or posterior cervical nodes, no thyroid masses or goiter palpable. Cardio: Regular rate and rhythm, s1 and s2 normal, no murmur appreciated. Resp: Expiratory wheezing and rhonchi, no rales or rubs Course Course Emergency Course: Portions of this record may have been created with voice recognition software. Level of Care: Express Care Visit Vital Signs Vital signs: Vital Signs Temperature 36.4 C 04/08/25 16:14 Pulse Rate 78 04/08/25 16:14 Respiratory Rate 20 04/08/25 16:14 Blood Pressure 144/67 H 04/08/25 16:14 Pulse Oximetry 95 04/08/25 16:14 Oxygen Delivery Room Air 04/08/25 16:14 Temperature 36.4 C 04/08/25 16:14 Pulse Rate 78 04/08/25 16:14 Respiratory Rate 20 04/08/25 16:14 Blood Pressure 144/67 H 04/08/25 16:14 Pulse Oximetry 95 04/08/25 16:14 Oxygen Delivery Room Air 04/08/25 16:14 Vital signs reviewed MDM - URI/Sore Throat MDM Narrative Medical decision making narrative: At the time of visit patient is resting comfortably on the exam table. Patient appears to be nontoxic. Oxygenation is 95% on room air in the clinic today. Complaints of runny nose, nonproductive cough, shortness of breath, chest congestion, and nasal congestion times 8 days. She denies any fevers, chills, body aches. States she has or short of breath on exertion. States when she is blowing her nose she is blowing out green nasal discharge. She is unable to cough anything up. No history of COPD or asthma. She has taken to at home COVID test and they were negative. On exam she has bilateral TM congestion, green nasal drainage with moderate inflammation and a maxillary sinus tenderness, lung sounds wheezing and rhonchi, heart rate regular rate and rhythm. Chest x-ray and hand-held neb treatment was ordered Medications: Hand-held neb DuoNeb treatment given in the clinic today. This improved patient's lung sounds and patient reports it is easier to breathe after treatment Diagnostics: Chest x-ray was performed and was negative for any acute cardiopulmonary process. Plan: I suspect patient has sinusitis/bronchitis. Prescription for Augmentin, prednisone, and albuterol inhaler was sent to the pharmacy. Supportive measures were discussed with the patient and they voiced understanding discharge instructions and agrees to treatment plan. Return precautions reviewed Differential Diagnosis Differential diagnosis: Likely upper respiratory infection, otitis media, sinusitis, viral infection, bronchitis, influenza, pharyngitis and other ( COVID) Discharge Plan Discharge Clinical Impression: Sinobronchitis Patient Disposition: Home Condition: Stable Instructions: Antibiotic Form, Acute Bronchitis (ED), Rhinosinusitis (ED) Additional Instructions: Chest x-rays negative for any sign of pneumonia in the clinic today Take prescription medications only as prescribed-Augmentin, prednisone, and albuterol inhaler Increase fluids and stay well hydrated May take Tylenol or motrin as directed on bottle for pain/fever May use Flonase 1 spray in each nare daily May take OTC antihistamines such as Zyrtec or Claritin daily as directed on bottle May apply Vicks vapor rub to chest to open sinuses Sinus rinses for congestion Cepacol spray, cough drops, throat lozenges, warm tea with honey/lemon, gargle salt water to soothe throat BRAT diet for diarrhea Clear liquids x 24 hours then advance as tolerated for nausea/vomiting Go to the ED if you develop a worsening in your condition- high fever not controlled by Tylenol or Motrin, dehydration, weakness, lethargy, shortness of breath, or chest pain. Follow up with your PCP in 3-5 days if symptoms persist. Patient Language: [place] Prescriptions: New prednisone 20 mg tablet 40 mg PO DAILY 5 Days Qty: 10 0RF albuterol sulfate 90 mcg/actuation HFA aerosol inhaler 2 puff inhalation Q4-6H PRN (Reason: shortness of breath or wheezing) 30 Days Qty: 8.5 0RF amoxicillin-pot clavulanate 875-125 mg tablet 1 tablet PO Q12H 10 Days Qty: 20 0RF No Action lisinopril-hydrochlorothiazide 20-12.5 mg tablet 20 tablet PO DAILY ezetimibe 10 mg tablet 10 mg PO DAILY celecoxib 200 mg capsule 200 mg PO DAILY omeprazole 20 mg capsule,delayed release(DR/EC) 20 mg PO DAILY fluoxetine 40 mg capsule 40 mg PO DAILY trazodone 150 mg tablet 150 mg PO QHS PRN Follow-up/Referrals: Andi,Hal Farrar MD [Primary Care Provider] Time of Disposition: 17:15 Quality NIHSS Nursing Documentation ED NIHSS nursing documentation: reviewed/agree
[2025-04-08] MEDS: IPRATROPIUM 0.5 MG/ALBUTEROL SULFATE 2.5 MG AMPUL.NEB 3 ML INHALATION (16:55)
== END 2025-04-08 17:18 | disposition home or self-care (01) ==
PROVIDERS: Emergency Provider Nurse Practitioner Family; PCP Internal Medicine
DX: J40 Bronchitis, not specified as acute or chronic (principal); J32.9 Chronic sinusitis, unspecified; I10 Essential (primary) hypertension
CPT/HCPCS: 71046; 94640; 99213; G0463